=== PATIENT | male | born 1975 | race Caucasian/White ===

== ENCOUNTER 2020-02-05 09:43 | Emergency (ER) | payer MEDICAID ==
[~2020-02-05] VITALS: Ht 175.3 cm; Wt 95.7 kg
--- NOTE | 2020-02-05 09:45 | NUR ---
PT BIB SELF C/O SI "I WANT TO PROVOKED POLICE TO SHOOT ME" PT IS AAOX4, NOT IN RESPIRATORY DISTRESS, V/S STABLE, KEPT RESTED AND COMFORTABLE. SITTER AT BEDSIDE.
--- NOTE | 2020-02-05 10:05 | NUR ---
URINE SPECIMEN COLLECTED AND SENT TO LAB.
--- NOTE | 2020-02-05 10:10 | NUR ---
CALLED SECURITY FOR WANDING.
[2020-02-05] MEDS ORDERED: OLANZAPINE 5 MG TABLET PO ONE (10:30)
[2020-02-05] MEDS ORDERED: OLANZAPINE 5 MG TABLET ONE ×2 (10:31→10:35)
[2020-02-05 10:32] LABS: BILIRUBIN,URINE NEGATIVE (NEGATIVE); BLOOD, URINE NEGATIVE Ery/uL (NEGATIVE); COLOR,URINE YELLOW (YELLOW); LEUKOCYTE ESTERASE ,URINE NEGATIVE (NEGATIVE); NITRITE, URINE NEGATIVE (NEGATIVE); PROTEIN,URINE NEGATIVE (NEGATIVE); UGLUCOSE NEGATIVE (NEGATIVE); UROBILINOGEN,URINE 0.2 EU/dL (0.2)
[2020-02-05 10:40] LABS: BASOPHILS # (AUTO) 0.1 /CMM (0.0-0.2); BASOPHILS % (AUTO) 0.9 % (0.0-2.0); EOSINOPHILS % (AUTO) 0.4 % (0.0-6.0); HEMATOCRIT 45 % (39-51); LYMPHOCYTES # (AUTO) 2.3 /CMM (0.8-4.8); LYMPHOCYTES % (AUTO) 21.9 % (20.0-44.0); MEAN CORPUSCULAR HGB CONC 33 g/dl (31.0-36.0); MEAN CORPUSCULAR VOLUME 92 fL (80-96); MONOCYTES # (AUTO) 0.7 /CMM (0.1-1.30); MONOCYTES % (AUTO) 6.7 % (2.0-12.0); NEUTROPHILS # (AUTO) 7.5 /CMM (1.8-8.9); NEUTROPHILS % (AUTO) 70.1 % (43.0-81.0); PLATELET COUNT (AUTO) 242 /CMM (150-450); RED BLOOD CELL COUNT(AUTO) 4.91 MIL/uL (4.5-6.0); WHITE BLOOD COUNT (AUTO) 10.7 K/uL (4.3-11.0)
[2020-02-05 10:50] LABS: CALCIUM, SERUM 8.2 mg/dL (8.5-10.1); CARBON DIOXIDE 23 mmol/L (21-32); CHLORIDE 107 mmol/L (98-107); CREATININE 1.1 mg/dL (0.6-1.3); GLUCOSE 107 mg/dL (74-106); POTASSIUM 3.7 mmol/L (3.5-5.1); SODIUM SERUM 143 mmol/L (136-145); UREA NITROGEN, BLOOD 14 mg/dL (7-18)
[2020-02-05 11:02] LABS: ALANINE AMINOTRANSFERASE 126 U/L (12-78); ALBUMIN 3.9 g/dL (3.4-5.0); ALCOHOL, BLOOD < 3 mg/dL (0-0); ALKALINE PHOSPHATASE 93 U/L (46-116); ASPARTATE AMINOTRANSFERASE 50 U/L (15-37); BILIRUBIN,DIRECT 0.2 mg/dL (0.0-0.2); BILIRUBIN,TOTAL 0.7 mg/dL (0.2-1.0); TOTAL PROTEIN, SERUM 7.2 g/dL (6.4-8.2)
--- NOTE | 2020-02-05 11:02 | NUR ---
Jean from Lab Released COVID result: Negative
[2020-02-05 11:08] LABS: ACETAMINOPHEN < 10 ug/ml (10-30)
--- NOTE | 2020-02-05 11:24 | NUR ---
Dr Win aware of all test results. Medically cleared For Psych. Spoke to [facility] Intake. Clinicals Faxed
--- NOTE | 2020-02-05 15:08 | NUR ---
Transfer info: Accepted By Noe Norris Accepting MD: Dr. Keys Going to:[address] Number for report: [phone]
--- NOTE | 2020-02-05 15:16 | NUR ---
Report to [facility] pending ambulance transfer ETA :1600
--- NOTE | 2020-02-05 15:19 | NUR ---
arranged transport to [facility] spoke to bill at [facility] #[id number] eta [id number]
--- NOTE | 2020-02-05 16:08 | NUR ---
report given to [facility] for pt transfer to [facility]
[2020-02-05 16:10] VITALS: BP 129/88
== END 2020-02-05 16:11 ==
LOC: ER 09:50
DX: R45.851 Suicidal ideations (principal); F15.10 Other stimulant abuse, uncomplicated; Z91.14 Patient's other noncompliance with medication regimen; Z20.828 Contact with and (suspected) exposure to other viral communicable diseases
CPT/HCPCS: 36415; 80048; 80076; 80299; 80307; 80320; 81001; 85025; 87426; 99285; C9803; 81000-TC; G0480